=== PATIENT | female | born 2000 | race Two or more races ===

== ENCOUNTER 2025-01-14 04:26 | Inpatient (IN) ==
[2025-01-14 04:48] LABS: BILIRUBIN,URINE NEGATIVE (NEGATIVE); BLOOD/HEMOGLOBIN,URINE NEGATIVE (NEGATIVE); GLUCOSE, URINE NEGATIVE (NEGATIVE); KETONES,URINE NEGATIVE (NEGATIVE); LEUKOCYTE ESTERASE ,URINE NEGATIVE (NEGATIVE); NITRITES,URINE NEGATIVE (NEGATIVE); PROTEIN,URINE 1+ (NEGATIVE); UROBILINOGEN,URINE NORMAL (NORMAL)
[2025-01-14 04:49] LABS: APPEARANCE,URINE CLEAR (CLEAR); COLOR,URINE YELLOW (YELLOW)
[2025-01-14 04:55] VITALS: BMI 34.1
[2025-01-14 04:56] LABS: BACTERIA,URINE 1+ /HPF (NEGATIVE); RBC,URINE 0-2 /HPF (0-3); SQUAMOUS EPITHELIAL CELL,UR NUMEROUS /HPF (NEGATIVE)
[2025-01-14 04:58] LABS: AMNISURE ROM TEST NO MEMBRANES RUPTURE (NO RUPTURE)
[2025-01-14] MEDS: ANCEF VIAL 1 GRAM IVP ONE (06:00)
[2025-01-14] MEDS: LR 1,000 ML IV 1,000 ML IV ONE ×2 (06:00→07:07)
[2025-01-14] MEDS: ZOFRAN INJ 4 MG VIAL ONE (06:42)
[2025-01-14] MEDS: PRECEDEX INJ VIAL ONE ×2 (06:42→06:58)
[2025-01-14] MEDS: XYLOCAINE 2 % (PLAIN) ONE (06:43)
[2025-01-14] MEDS: MARCAINE SPINAL ONE (06:43)
[2025-01-14] MEDS: PEPCID 20 MG VIAL ONE (06:47)
[2025-01-14] MEDS: BICITRA 30 ML PO ONE (06:50)
[2025-01-14] MEDS: REGLAN INJ 10 MG VIAL ONE (06:58)
[2025-01-14] MEDS: DECADRON INJ ONE (06:58)
[2025-01-14] MEDS: OFIRMEV IV 1000 MG VIAL 1,000 MG/100 ML VIAL IV ONE (06:59)
[2025-01-14] MEDS: PITOCIN ONE (07:03)
[2025-01-14] MEDS: NS 100 ML IV 100 ML ONE (07:07)
[2025-01-14] MEDS: ANCEF VIAL 1 GRAM ONE (07:07)
[2025-01-14] MEDS: NEO-SYNEPHRINE INJ ONE (07:37)
[2025-01-14] MEDS: VERSED ONE (08:05)
[2025-01-14] MEDS: TORADOL 30 MG VIAL ONE ×2 (08:07→08:08)
[2025-01-14] MEDS ORDERED: PERCOCET TAB 5/325 MG PO PRN (09:18)
[2025-01-14] MEDS ORDERED: REGLAN INJ 10 MG VIAL IVP PRN (09:18)
[2025-01-14] MEDS ORDERED: BENADRYL INJ 50 MG VIAL IVP PRN (09:18)
[2025-01-14] MEDS ORDERED: ZOFRAN INJ 4 MG VIAL IVP PRN (09:18)
[2025-01-14] MEDS: PRENATAL PLUS PO SCH (12:53)
[2025-01-14] MEDS: ADACEL or BOOSTRIX TDaP VACCINE IM ONE (12:54)
[2025-01-14] MEDS: OXYTOCIN 20 UNIT/1,000 ML-NS 20 UNIT/1,000 ML PLAST..BAG IV SCH (13:00)
[2025-01-14] MEDS: TORADOL 30 MG VIAL IVP PRN (13:30)
[2025-01-14] MEDS: MYLICON TAB 80 MG CHEW PO PRN (13:30)
[2025-01-14] MEDS: PERCOCET TAB 5/325 MG PO PRN (19:07)
[2025-01-14] MEDS: MOTRIN TAB 800 MG PO PRN (20:33)
[2025-01-14] MEDS: COLACE CAP 100 MG PO SCH (20:34)
[2025-01-15 05:08] LABS: HEMATOCRIT 31.5 % (36.0-47.0)
[2025-01-15 05:10] LABS: HEMOGLOBIN 10.7 g/dL (12.0-16.0)
[2025-01-15] MEDS: BACTROBAN TOPICAL OINT TOP SCH (14:11)
[2025-01-16 04:26] VITALS: RESP 18
[2025-01-16 08:23] VITALS: BP 123/80; PULSE 91; TEMP 98.2; O2SAT 99
== END 2025-01-16 10:45 | disposition home or self-care (01) | DRG 788 ==
LOC: ER 04:26 → LD 05:38 → MED/SURG 09:19
PROVIDERS: ADMIT Specialist; ATTEND Specialist